=== PATIENT | female | born 1985 | race Hispanic/Latino ===

== ENCOUNTER 2017-06-25 09:00 | Outpatient (CLI) | payer OTHER ==
[2017-06-25 14:20] LABS: Hemoglobin 14.3 g/dL (12.0-16.0); Mean Corpuscular HGB CONC 33.9 g/dL (32.0-36.0); Mean Corpuscular Hemoglobin 29.5 pg (27.0-31.0); Mean Corpuscular Volume 87.1 fl (81.0-99.0); Mean Platelet Volume 7.1 fL (7.4-10.4); Platelet Count 339 thou/uL (130-400); RBC Distribution Width 11.5 % (11.5-14.5); Red Blood Cell (RBC) Count 4.84 mill/uL (4.20-5.40); White Blood Cell (WBC) Count 6.7 thou/uL (4.8-10.8)
[2017-06-25 14:52] LABS: Anion Gap 12 mmol/L (10-20); BUN (Urea Nitrogen) 15 mg/dL (7.0-18.7); Calc. Creatinine Clearance 0 mL/min (70-130); Calcium 9.1 mg/dL (7.8-10.44); Carbon Dioxide 23 mmol/L (22-29); Chloride 107 mmol/L (98-107); Estimated GFR-MDRD 85; Glucose 87 mg/dL (70-105); Potassium 4.1 mmol/L (3.5-5.1); Sodium 138 mmol/L (136-145)
[2017-06-25 15:10] LABS: BHCG - Serum Negative (NEGATIVE); Pregs Control Background? CLEAR/WHITE (CLR/WHITE); Pregs Control Bar Appear? YES (CONTROL BAR)
== END 2017-06-25 09:01 | disposition home or self-care (01) ==
LOC: LABBT 09:00
PROVIDERS: ATTEND Orthopaedic Surgery
DX: Z01.812 Encounter for preprocedural laboratory examination (principal); M24.662 Ankylosis, left knee
CPT/HCPCS: 80048; 84703; 85027

== ENCOUNTER 2017-06-28 07:03 | Day surgery (SDC) | payer OTHER ==
[2017-06-25 14:28] VITALS: BMI 32.0
[2017-06-28] MEDS ORDERED: CEFAZOLIN/Water 2 GM/20 ML SYRINGE ONE (08:12)
[2017-06-28] MEDS ORDERED: Midazolam HCl 2 mg/2 ml Vial ONE (08:12)
[2017-06-28] MEDS ORDERED: Dexamethasone 20 MG/5 ML VIAL ONE (08:49)
[2017-06-28] MEDS ORDERED: PROPOFOL 200 MG/20 ML VIAL ONE (08:49)
[2017-06-28] MEDS ORDERED: Lidocaine 1% PF 5 ML VIAL ONE (08:49)
[2017-06-28] MEDS ORDERED: Fentanyl 100 MCG/2 ML VIAL ONE ×3 (09:38→11:03)
[2017-06-28] MEDS ORDERED: Bupivacaine HCl 0.5%/Epinephrine 1:200,000/PF 30 ml Vial ONE (10:16)
[2017-06-28] MEDS ORDERED: Meperidine HCl/PF 25 MG/ML VIAL ONE (10:49)
[2017-06-28] MEDS ORDERED: HYDROmorphone 0.5 MG/0.5 ML SYRINGE ONE ×2 (11:25→11:42)
[2017-06-28] MEDS ORDERED: Ondansetron ODT 4 MG TAB ONE (12:46)
--- NOTE | 2017-06-28 14:13 | OP ---
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 PROCEDURES PERFORMED: 1. Arthroscopy of the left knee with excision of scar tissue. 2. Manipulation under anesthesia of the left knee. SURGEON: [employer] M.D. ANESTHESIA: General. TECHNIQUE: The patient was given preoperative IV antibiotics, taken to the operating room, placed in the supine position. Satisfactory general anesthesia was performed. Left lower extremity was steri alayna prepped and draped in usual fashion. After exsanguination, the tourniquet was raised to 300 mmH g. The knee was scoped through the usual inferomedial and inferolateral portal. The patient had bob e articular cartilage damage under the patella, but for the most part, the patellofemoral joint looke d very good. The medial and lateral compartments had normal articular cartilage and both menisci wer e normal. There was scarring in the suprapatellar pouch as well as the medial and lateral gutters an d in the anterior aspect of the knee in the Hoffa's fat pad, the shaver was used to remove the scar t issue in the suprapatellar pouch, medial and lateral gutters and the fat pad. The ACL reconstruction was intact and was very functional. During the procedure, all the debris was irrigated out of the k nee joint. The instruments were removed. The portals were closed with 3-0 Rapide. The tourniquet w as released and the knee was then manipulated. Scar tissue was removed during the manipulation and I was able to fully extend and flex the left knee. The knee was very stable afterwards. The knee sonny nt was injected with 30 mL of 0.5% Marcaine with epinephrine. Sterile dressing was applied. The pat ient was awakened, extubated, and transferred to the recovery room in stable condition. ESTIMATED BLOOD LOSS: Minimal. COMPLICATIONS: None. TOURNIQUET TIME: Sixteen minutes. DISCHARGE MEDICATIONS: Tylenol #3 one every 6 hours as needed for pain, #50 with 1 refill.
== END 2017-06-28 13:00 | disposition home or self-care (01) ==
LOC: SDC 07:03
PROVIDERS: ATTEND Orthopaedic Surgery
DX: T84.82XA Fibrosis due to internal orthopedic prosthetic devices, implants and grafts, initial encounter (principal); G44.009 Cluster headache syndrome, unspecified, not intractable; Z98.890 Other specified postprocedural states; Z88.8 Allergy status to other drugs, medicaments and biological substances
CPT/HCPCS: 96374; J0670; J1100; J1170; J2001; J2175; J2250; J2704; J3010; Q0162